=== PATIENT | male | born 1965 | race Caucasian/White ===

== ENCOUNTER → 2017-02-26 | Outpatient (CLI) | payer BC ==
--- NOTE | 2017-02-26 23:41 | MR ---
EXAMINATION TYPE: MR knee LT wo con DATE OF EXAM: 02/26/2017 COMPARISON: NONE HISTORY: Left Knee Pain for approx. 10 weeks, xrays on pacs TECHNIQUE: Multiplanar, multisequence imaging of the left knee is performed without IV contrast. FINDINGS: The anterior and posterior cruciate ligaments are intact. There is a moderately large knee joint effu lluvia. The collateral ligaments show some thinning medially and laterally. There is a 3 cm area of pat timbo increased signal in the medial aspect medial tibial condyle. There is narrowing of the medial milana nt space. There is thinning of the medial meniscus. There is increased signal in the posterior horn m edial meniscus near the free margin. The lateral meniscus appears intact. I see no fracture line. IMPRESSION: Large knee joint effusion. Osteoarthritis in the medial joint space. Mild bone bruise in the medial t ibial condyle. No fracture seen. Subcutaneous edema around the anterior knee. Vertical and horizontal tear of the posterior horn medial meniscus with degenerative thinning. No leona dence of complete ligamentous tear.
== END | disposition home or self-care (01) ==
LOC: RADMRIMAIN 16:56
PROVIDERS: ATTEND Orthopaedic Surgery
DX: S83.242A Other tear of medial meniscus, current injury, left knee, initial encounter (principal); M17.12 Unilateral primary osteoarthritis, left knee; R60.0 Localized edema

== ENCOUNTER 2017-04-22 08:18 | Day surgery (SDC) | payer BC ==
[2017-04-18 14:49] VITALS: BMI 42.0
--- NOTE | 2017-04-21 09:58 | HP ---
HISTORY AND PHYSICAL CHIEF COMPLAINT: Left knee pain. 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 He twisted his knee while breaking up his dogs from fighting in his driveway. He notes medial pain and swelling in addition to frequent popping sensations. He notes giving way. He has tried anti-inflammatories and an injection with only partial temporary relief. He notes his pain limits his normal function and activities. PAST MEDICAL HISTORY: Significant for irritable bowel syndrome, ankylosing spondylitis, hypertension, and type 2 diabetes. PAST SURGICAL HISTORY: Significant for tonsillectomy. CURRENT MEDICATIONS: 1. Humira. 2. Metformin. 3. Testosterone. 4. Bystolic. ALLERGIES: He denies drug allergies. FAMILY HISTORY: Significant for cancer and stroke. SOCIAL HISTORY: Negative for current tobacco or alcohol use. REVIEW OF SYSTEMS: Sixteen-point review of systems otherwise reviewed and is noncontributory. PHYSICAL EXAMINATION: On examination, the patient is approximately 5 feet, 9 inches, 270 pounds of endomorphic habitus. HEENT exam is nonfocal. Neck is supple. He has painless passive motion of his left hip. Straight leg raise is negative. Active motion left knee -6 to 95 degrees of flexion. He has a moderate effusion. He is tender about the medial joint line. Collaterals are stable, Ksenia's negative, Oliva's elicits medial pain. His distal neurovascular exam appears intact in the left lower extremity. MRI report for left knee 02/26/2017 shows a posterior medial meniscal tear along with medial compartment osteoarthrosis. IMPRESSION: 1. Internal derangement, left knee with symptomatic medial meniscal tear. 2. Left knee medial compartment osteoarthrosis. 3. Increased body mass index. 4. History of ankylosing spondylitis. RECOMMENDATIONS: I talked to the patient at length regarding his treatment options. At this point, he is having persistent pain and mechanical symptoms despite adequate conservative measures. After a thorough discussion, he opts to proceed with surgery. We will plan to proceed with left knee arthroscopic evaluation with probable partial medial meniscectomy. Risks and benefits were discussed at length in layman's terms. We will likely perform that as an outpatient procedure. MMODL / IJN: [id number] /
[~2017-04-22 08:18] MED LIST: LACTATED RINGERS 1,000 ML IV SCH; MORPHINE SULFATE 2 MG/ML SYRINGE IV PRN; ONDANSETRON 4 MG/2 ML VIAL IVP PRN
[2017-04-22] MEDS ORDERED: LIDOCAINE 1% 20 ML VIAL (10MG/ML) FOR IV START INTRADERMA ONE (09:03)
[2017-04-22 09:16] LABS: Glucose,Whole Blood 108 mg/dL (75-99)
[2017-04-22] MEDS ORDERED: PROPOFOL 10 MG/ML 20 ML VIAL IV ONE (09:57)
[2017-04-22] MEDS ORDERED: fentaNYL (PF) 50 MCG/ML 2 ML AMP ONE (09:57)
[2017-04-22] MEDS ORDERED: MIDAZOLAM 2 MG/2 ML VIAL ONE (09:57)
[2017-04-22] MEDS ORDERED: SUCCINYLCHOLINE CHLORIDE 100 MG/5 ML SYR IV ONE (09:57)
[2017-04-22] MEDS ORDERED: LIDOCAINE 1% INJ 10MG/ML (20 ML MDV) ONE (09:57)
[2017-04-22] MEDS ORDERED: LACTATED RINGERS 1,000 ML IV ONE (10:27)
--- NOTE | 2017-04-22 10:43 | P.OP ---
Date of Procedure: 04/22/17 Preoperative Diagnosis: Left knee internal derangement Postoperative Diagnosis: Left knee posterior medial meniscal tear/grade 2 chondral injury medial patellar facet/reactive synovitis Procedure(s) Performed: Left knee arthroscopic partial medial meniscectomy/patellar chondroplasty/ partial synovectomy of the medial, lateral, and patellofemoral compartments Anesthesia: SAMUEL Surgeon: Won Bernabe Estimated Blood Loss (ml): 10 Pathology: none sent Condition: stable Disposition: PACU Indications for Procedure: The patient's a 51-year-old male who presents with progressive left knee pain and mechanical symptoms after a previous twisting injury. A discussion of the risks and benefits of operative intervention versus continued conservative measures was made with the patient. He opted to proceed with surgery. Operative risks to include infection, neurovascular injury, development of blood clots, possible incomplete resolution of symptoms, possible worsening symptoms and need for subsequent procedures was discussed. Informed consent was obtained. Operative Findings: As below Description of Procedure: The patient was brought to the operating room, and after induction of general anesthesia examined the left knee. Collaterals were stable, Ksenia was negative, and posterior drawer was negative. The left lower extremity was prepped and draped in normal fashion. A superior lateral portal was made through a 3 mm skin incision superior and lateral to the patella. A moderate effusion was encountered. A lateral portal was made through a 5 mm vertical skin incision lateral to the patella tendon above the joint. Diagnostic arthroscopy was performed. A medial portal was made through a similar incision medial to the patella tendon above the joint line. On inspection of the medial compartment, he was noted have an oblique tear involving the posterior medial meniscus in the white-white junction. This debrided back to stable base with straight baskets and a motorized shaver. The edges were contoured. The remaining medial meniscus was stable and intact. Degenerative changes involving medial compartment to include grade 2/3 chondral changes involving the distal femur and grade 3/4 chondral changes involving the anterior medial tibia were noted. Reactive synovitis and involving the anteromedial, anterolateral, and patellofemoral compartment was debrided with motorized shaver. On inspection of the notch, the anterior cruciate ligament was intact. On inspection of the lateral compartment, no significant meniscal or cartilage pathology was noted. On examination of the patellofemoral articular and, a grade 2 chondral injury involving the medial patella facet was noted. There was a loose chondral flap debrided back to a stable base with a motorized shaver. The gutters were clear debris. The knee was then thoroughly irrigated. The portals were closed with Steri-Strips. A sterile dressing was applied in addition to a compression stocking. The patient was awoken from general anesthesia and transferred to recovery room in good condition. Blood loss was estimated at 10 mL. No complications were incurred.
[2017-04-22 10:44] LABS: Glucose,Whole Blood 103 mg/dL (75-99)
[2017-04-22 10:49] VITALS: TEMP 98.1
[2017-04-22] MEDS ORDERED: HYDROcodone/APAP 7.5-325MG 1 EACH TAB PO ONE (11:31)
[2017-04-22 11:36] VITALS: RESP 18
[2017-04-22 12:48] VITALS: BP 142/85; PULSE 63
== END 2017-04-22 12:49 | disposition home or self-care (01) ==
LOC: OR 08:18
PROVIDERS: ATTEND Orthopaedic Surgery
DX: S83.242A Other tear of medial meniscus, current injury, left knee, initial encounter (principal); S83.32XA Tear of articular cartilage of left knee, current, initial encounter; X50.1XXA Overexertion from prolonged static or awkward postures, initial encounter; M65.862 Other synovitis and tenosynovitis, left lower leg; K58.9 Irritable bowel syndrome, unspecified; M35.9 Systemic involvement of connective tissue, unspecified; I10 Essential (primary) hypertension; E11.9 Type 2 diabetes mellitus without complications; Z79.84 Long term (current) use of oral hypoglycemic drugs; Z79.899 Other long term (current) drug therapy
CPT/HCPCS: 29881; J2250; J0690; J2405; J2001; J3010; J0330; J2704

== ENCOUNTER → 2024-05-11 | Outpatient (CLI) | payer BC ==
--- NOTE | 2024-05-11 10:21 | XR ---
EXAMINATION TYPE: XR finger LT DATE OF EXAM: 05/11/2024 10:08 AM COMPARISON: None. CLINICAL INDICATION: Male, 59 years old with history of L03.012 CELLULITIS OF LEFT FINGER, pain TECHNIQUE: XR finger LT views are submitted. FINDINGS: No displaced fracture is seen with certainty. Joint spaces are well-preserved. Soft tissue edema sug gests underlying cellulitis. No destructive process to suggest osteomyelitis at this time. No radiopa que foreign body. IMPRESSION: No acute displaced fracture or dislocation. [facility], , 05/11/2024 10:18 AM
== END | disposition home or self-care (01) ==
LOC: RADXRMAIN 09:50
PROVIDERS: ATTEND Family Medicine
DX: L03.012 Cellulitis of left finger (principal); W54.0XXD Bitten by dog, subsequent encounter

== ENCOUNTER 2024-05-14 12:19 | Emergency (ER) | payer OTHER, BC ==
--- NOTE | 2024-05-14 13:13 | XR ---
EXAMINATION TYPE: XR hand limited LT DATE OF EXAM: 05/14/2024 1:07 PM COMPARISON: None. CLINICAL INDICATION: Male, 59 years old with history of IHS injury, pain TECHNIQUE: Frontal, lateral and oblique images of the left hand are obtained. FINDINGS: There is fracture at the base of the distal phalanx left third digit. Mild angulation and 1 mm displacement seen. There is a linear radiopaque density within the edematous soft tissues at the palmar aspect of the digit measuring 4.4 mm in length and foreign body is not excluded. IMPRESSION: As above [facility], , 05/14/2024 1:11 PM
[2024-05-14] MEDS ORDERED: VANCOMYCIN IV PER PHARMACY 1 EACH MISC MISCELLANE PRN (13:50)
--- NOTE | 2024-05-14 13:54 | ED ---
General Adult HPI - General Chief complaint: Recheck/Abnormal Lab/Rx Stated complaint: IHS-Fall/L hand injury Time Seen by Provider: 05/14/24 13:02 Source: patient Mode of arrival: ambulatory Limitations: no limitations - History of Present Illness Initial comments: Patient with a past medical history of diabetes ankylosing spondylitis on Enbrel presenting today for injury and concern for infection of his third digit of his left upper extremity left hand. States he sustained a dog bite to his left finger 3 to 4 weeks ago. Since then he completed a course of Keflex and has been on Augmentin as well and is in the middle of the course of Augmentin. He has been on prednisone. Today was at work and injured his finger while lifting something and had worsening pain and swelling in the distal aspect of the third left digit. Denies fevers, chills, nausea, vomiting or systemic symptoms. No history MR BAILEY. - Related Data Home Medications Medication Instructions Recorded Confirmed Nebivolol [Bystolic] 5 mg PO HS 04/18/17 05/14/24 metFORMIN HCL [Glucophage] 500 mg PO BID 04/18/17 05/14/24 Amoxic-Pot Clav 875-125Mg 1 tab PO Q12HR 05/14/24 05/14/24 [Augmentin 875-125] Etanercept [Enbrel Sureclick] 50 mg SQ NOLEN 05/14/24 05/14/24 Furosemide [Lasix] 40 mg PO DAILY 05/14/24 05/14/24 Potassium Chloride [Klor-Con M20] 20 meq PO DAILY 05/14/24 05/14/24 Tamsulosin HCl [Flomax] 0.4 mg PO HS 05/14/24 05/14/24 Testosterone Cypionate 200 mg IM Q21D 05/14/24 05/14/24 [Depo-Testosterone] predniSONE [Deltasone] 20 mg PO DAILY 05/14/24 05/14/24 Allergies Allergy/AdvReac Type Severity Reaction Status Date / Time Iodinated Contrast Media Allergy Nausea & Verified 05/14/24 15:18 Vomiting Review of Systems ROS Statement: Those systems with pertinent positive or pertinent negative responses have been documented in the HPI. ROS Other: All systems not noted in ROS Statement are negative. Past Medical History Past Medical History: Diabetes Mellitus, Hypertension Additional Past Medical History / Comment(s): Past Surgical History: Orthopedic Surgery, Tonsillectomy Smoking Status: Former smoker Past Alcohol Use History: None Reported Past Drug Use History: None Reported General Exam - General Exam Comments Initial Comments: PE: CONSTITUTIONAL: No apparent distress, well appearing SKIN: Warm, dry, no jaundice, hives or petechiae. Circumferential erythema extending the distal aspect of the third digit towards the PIP joint, does not extend beyond this along the flexor sheath, no visible wound or drainage EYES: Pupils are equally round, extraocular movements intact without nystagmus, clear conjunctiva, non-icteric sclera HENT: Normocephalic, atraumatic, moist mucus membranes, oropharynx clear without exudates NECK: , Full range of motion, normal appearance PULMONARY: Clear to auscultation without wheezes, rhonchi, or rales, normal excu rsion, no accessory muscle use and no stridor CARDIOVASCULAR: Regular rate, rhythm, normal S1 and S2. No appreciated murmurs, rubs or gallops. Strong radial pulses with intact distal perfusion. No lower extremity edema GENITOURINARY: MUSCULOSKELETAL: Extremities have no gross deformity, no deformity of the distal aspect of the third digit, unable to flex at the DIP joint secondary to pain and swelling NEUROLOGIC:_a/o x 3, GCS 15, normal mentation and speech. Moves all extremities x 4 without motor or sensory deficit PSYCHIATRIC:_normal mood and affect, thought process is clear and linear Limitations: no limitations Course Vital Signs 05/14/24 05/14/24 12:19 18:16 Temperature 98.1 F 98.9 F Pulse Rate 90 72 Respiratory 18 20 Rate Blood Pressure 145/87 151/94 O2 Sat by Pulse 97 96 Oximetry Medical Decision Making - Medical Decision Making Was pt. sent in by a medical professional or institution (, PA, MARINE MECHANIC, urgent care, hospital, or long-term...) When possible be specific @ -No Did you speak to anyone other than the patient for history (EMS, parent, family, police, friend...)? What history was obtained from this source @ -No Did you review nursing and triage notes (agree or disagree)? Why? @ -I reviewed nursing and triage notes Were old charts reviewed (outside hosp., previous admission, EMS record, old EKG, old radiological studies, urgent care reports/EKG's, long-term records)? Report findings @ -Medical records reviewed-I reviewed patient's x-ray performed on 05/11/2024 on his left third digit, no fracture or foreign body evident at that time, compared to today's x-ray with there is an obvious distal phalanx fracture Differential Diagnosis (chest pain, altered mental status, abdominal pain women, abdominal pain men, vaginal bleeding, weakness, fever, dyspnea, syncope, headache, dizziness, GI bleed, back pain, seizure, CVA, palpatations, mental health, musculoskeletal)? @ -Differential Musculoskeletal Muscular strain, contusion, ligament sprain, fracture, arthritis, septic arthritis, bursitis, cellulitis, muscle spasm, nerve compression, DVT, arterial occlusion, herpes zoster, electrolyte abnormality, tumor.... This is not meant to be in all inclusive list EKG interpreted by me (3pts min.). @ -As above X-rays interpreted by me (1pt min.). @ -@Reviewed hand x-ray, there appears to be a dorsal distal phalanx fracture with small amount of angulation, agree w/ radiologist interpretation CT interpreted by me (1pt min.). @ -None done U/S interpreted by me (1pt. min.). @ -None done What testing was considered but not performed or refused? (CT, X-rays, U/S, labs)? Why? @ -None What meds were considered but not given or refused? Why? @ -None Did you discuss the management of the patient with other professionals (professionals i.e. , PA, MARINE MECHANIC, lab, RT, psych nurse, social science teacher, acid remover, teacher, facilities officer, behavioral health case manager)? Give summary @Case is discussed with Dr. Moncada, orthopedic surgery, states is not on-call recommends transfer to facility with hand surgeon if on-call group unable to cover hand, I did discuss case with Dr. Bernabe, on-call orthopedics, is not comfortable being on consult should this pt require surgical intervention, rec's transfer to facility w/ hand surgeon Was smoking cessation discussed for >3mins.? @ -No Was critical care preformed (if so, how long)? @ -No Were there social determinants of health that impacted care today? How? (Homelessness, low income, unemployed, alcoholism, drug addiction, transportation, low edu. Level, literacy, decrease access to med. care, long-term, rehab)? @ -No Was there de-escalation of care discussed even if they declined (Discuss DNR or withdrawal of care, Hospice)? @ -No What co-morbidities impacted this encounter? (DM, HTN, Smoking, COPD, CAD, Cancer, CVA, ARF, Chemo, Hep., AIDS, mental health diagnosis, sleep apnea, morbid obesity)? @Diabetes, ankylosing spondylitis Was patient admitted / discharged? Hospital course, mention meds given and route, prescriptions, significant lab abnormalities, going to OR and other pertinent info. @Transfer-patient is a 59-year-old gentleman with a past medical history of diabetes, ankylosing spondylitis on Embrel presenting today for left third digit erythema 3-week status post dog bite as well as injury today. X-ray was initially ordered by triage nurse. I reviewed x-ray, present for distal phalanx fracture with questionable foreign body. On my assessment patient has fusiform welling to the distal aspect of the third digit and inability to flex at the DIP joint, it is erythema extends onto PIP joint but not beyond this does not extend down the flexor sheath. Ordered Unasyn, vancomycin, CBC, CRP, CMP PT PTT. Patient will likely require admission and potential hand surgery consult. Updated patient plan for transfer to [facility] for hand surgery consult. Patient is agreeable w/ plan. Ambulance transfer was offered however pt preferred transfer via private vehicle. Labs significant for slight elevation neutrophils 8.2%, CRP less than 0.5. Of note since vancomycin infusion will take 3 hours this was not given prior to transfer. Case discussed w/ hand surgeon, Dr. Guerrier, [facility], kindly accepts pt for transfer. Patient stable for transfer via pv. Undiagnosed new problem with uncertain prognosis? @ -No Drug Therapy requiring intensive monitoring for toxicity (Heparin, Nitro, Insulin, Cardizem)? @ -No Were any procedures done? @ -No Diagnosis/symptom? @Distal phalnyx fracture, cellulitis Acute, or Chronic, or Acute on Chronic? acute Uncomplicated (without systemic symptoms) or Complicated (systemic symptoms)? @ -uncomplicated Side effects of treatment? @ -No Exacerbation, Progression, or Severe Exacerbation? @ -No Poses a threat to life or bodily function? How? (Chest pain, [place], [place], pneumonia, PE, COPD, DKA, ARF, appy, cholecystitis, CVA, Diverticulitis, Homicidal, Suicidal, threat to staff... and all critical care pts) @ -Potentially if left untreated could progress to sepsis, septic shock or loss of digit - Lab Data Result diagrams: 05/14/24 14:52 05/14/24 14:52 Lab Results 05/14/24 05/14/24 05/14/24 Range/Units 14:52 14:52 14:52 WBC 10.5 (3.8-10.6) k/uL RBC 5.44 (4.30-5.90) m/uL Hgb 15.5 (13.0-17.5) gm/dL Hct 46.3 (39.0-53.0) % MCV 85.2 (80.0-100.0) fL MCH 28.4 (25.0-35.0) pg MCHC 33.4 (31.0-37.0) g/dL RDW 13.0 (11.5-15.5) % Plt Count 274 (150-450) k/uL MPV 7.3 Neutrophils % 78 % Lymphocytes % 12 % Monocytes % 8 % Eosinophils % 1 % Basophils % 0 % Neutrophils # 8.2 H (1.3-7.7) k/uL Lymphocytes # 1.3 (1.0-4.8) k/uL Monocytes # 0.9 (0-1.0) k/uL Eosinophils # 0.1 (0-0.7) k/uL Basophils # 0.0 (0-0.2) k/uL PT 10.5 (10.0-12.5) sec INR 0.9 (<1.2) APTT 25.2 (22.0-30.0) sec Sodium 132 L (137-145) mmol/L Potassium 4.3 (3.5-5.1) mmol/L Chloride 98 (98-107) mmol/L Carbon Dioxide 24 (22-30) mmol/L Anion Gap 10 mmol/L BUN 33 H (9-20) mg/dL Creatinine 0.90 (0.66-1.25) mg/dL Est GFR (CKD-EPI)AfAm >90 (>60 ml/min/1.73 sqM) Est GFR (CKD-EPI)NonAf >90 (>60 ml/min/1.73 sqM) Glucose 135 H (74-99) mg/dL Calcium 9.8 (8.4-10.2) mg/dL Total Bilirubin 0.4 (0.2-1.3) mg/dL AST 22 (17-59) U/L ALT 35 (4-49) U/L Alkaline Phosphatase 68 (38-126) U/L C-Reactive Protein <0.5 (<1.0) mg/dL Total Protein 7.6 (6.3-8.2) g/dL Albumin 4.4 (3.5-5.0) g/dL Disposition Clinical Impression: Cellulitis, Phalanx, distal fracture of finger Disposition: OTHER INSTITUTION NOT DEFINED Condition: Stable Referrals: Hunter Carolina DO [Primary Care Provider] - 1-2 days - Out of Hospital Transfer - Req. Specs Out of Hospital Transfer - Requested Specifics: Other Emergency Center ([facility])
[2024-05-14] MEDS: AMPICILLIN-SULBACTAM 3 GM in SODIUM CHLORIDE 0.9% 100 ML IVPB STA (14:57)
[2024-05-14] MEDS: KETOROLAC 15 MG/ML 1 ML VIAL IVP STA (14:57)
[2024-05-14 15:20] LABS: INR 0.9 (<1.2)
[2024-05-14 15:21] LABS: ALT 35 U/L (4-49); AST 22 U/L (17-59); African American GFR (CKD) >90 (>60 ml/min/1.73 sqM); Albumin 4.4 g/dL (3.5-5.0); Alkaline Phosphatase 68 U/L (38-126); Anion Gap 10 mmol/L; Blood Urea Nitrogen 33 mg/dL (9-20); C Reactive Protein <0.5 mg/dL (<1.0); Calcium 9.8 mg/dL (8.4-10.2); Carbon Dioxide 24 mmol/L (22-30); Chloride 98 mmol/L (98-107); Glucose 135 mg/dL (74-99); Non-African American GFR(CKD) >90 (>60 ml/min/1.73 sqM); Partial Thromboplastin Time 25.2 sec (22.0-30.0); Potassium 4.3 mmol/L (3.5-5.1); Prothrombin Time 10.5 sec (10.0-12.5); Sodium 132 mmol/L (137-145); Total Bilirubin 0.4 mg/dL (0.2-1.3); Total Protein 7.6 g/dL (6.3-8.2)
[2024-05-14 15:34] LABS: Basophils % (A) 0 %; Eosinophils # (A) 0.1 k/uL (0-0.7); Eosinophils % (A) 1 %; HCT 46.3 % (39.0-53.0); HGB 15.5 gm/dL (13.0-17.5); Lymphocytes # (A) 1.3 k/uL (1.0-4.8); Lymphocytes % (A) 12 %; MCH 28.4 pg (25.0-35.0); MCHC 33.4 g/dL (31.0-37.0); MCV 85.2 fL (80.0-100.0); Mean Platelet Volume 7.3; Monocytes # (A) 0.9 k/uL (0-1.0); Monocytes % (A) 8 %; Neutrophils # (A) 8.2 k/uL (1.3-7.7); Neutrophils % (A) 78 %; Platelet Count 274 k/uL (150-450); RBC 5.44 m/uL (4.30-5.90); WBC 10.5 k/uL (3.8-10.6)
[2024-05-14] MEDS: VANCOMYCIN 1,750 MG in SODIUM CHLORIDE 0.9% 500 ML 500 ML IVPB ONE (16:31)
[2024-05-14 18:19] VITALS: BP 151/94; PULSE 72; RESP 20; TEMP 98.9
[2024-05-15] MEDS ORDERED: VANCOMYCIN 1,750 MG in SODIUM CHLORIDE 0.9% 500 ML 500 ML IVPB SCH (06:00)
== END 2024-05-14 18:18 | disposition other institution (70) ==
LOC: EC 12:19
DX: S62.633A Displaced fracture of distal phalanx of left middle finger, initial encounter for closed fracture (principal); E11.9 Type 2 diabetes mellitus without complications; M45.9 Ankylosing spondylitis of unspecified sites in spine; Z87.891 Personal history of nicotine dependence; Z91.041 Radiographic dye allergy status; W23.1XXA Caught, crushed, jammed, or pinched between stationary objects, initial encounter; Y99.0 Civilian activity done for income or pay
CPT/HCPCS: 36415; 80053; 85025; 85610; 85730; 86140; 73120; 99283; 96365; 96366; 96375; J0295; J1885